=== PATIENT | female | born 1995 | race Caucasian/White ===

== ENCOUNTER 2020-04-14 16:29 | Emergency (ER) | payer OTHER ==
[~2020-04-14] VITALS: Ht 157.5 cm; Wt 60.3 kg
[2020-04-14] MEDS ORDERED: BUSPIRONE HCL7.5 MG PO (17:17)
[2020-04-14] MEDS ORDERED: XULANE PATCH1 EACH TD (17:17)
[2020-04-14] MEDS ORDERED: ZOFRAN4 MG PO (17:55)
== END 2020-04-14 18:41 | disposition home or self-care (01) ==
LOC: ED 16:29
DX: R11.10 Vomiting, unspecified (principal); R19.7 Diarrhea, unspecified; Z87.891 Personal history of nicotine dependence; Z88.0 Allergy status to penicillin; Z88.8 Allergy status to other drugs, medicaments and biological substances; Z79.899 Other long term (current) drug therapy
CPT/HCPCS: 80053; 83690; 83735; 84703; 85025; 96374; 99284-25; J2405; J7030

== ENCOUNTER 2020-08-18 12:43 | Emergency (ER) | payer SELFPAY ==
[~2020-08-18] VITALS: Ht 157.5 cm; Wt 60.3 kg
[~2020-08-18 12:43] MED LIST: BUSPIRONE HCL7.5 MG PO; XULANE PATCH1 EACH TD; ZOFRAN4 MG PO
[2020-08-18] MEDS ORDERED: NITROFURANTOIN100 M1 PO (13:00)
[2020-08-18] MEDS ORDERED: BUPROPION XL150 MG PO (13:00)
[2020-08-18] MEDS ORDERED: PREDNISONE20 MG PO (13:21)
[2020-08-18] MEDS ORDERED: HYDROXYZINE HCL25 MG PO (13:40)
== END 2020-08-18 13:53 | disposition home or self-care (01) ==
LOC: ED 12:43
DX: L50.9 Urticaria, unspecified (principal); Z87.891 Personal history of nicotine dependence; Z88.0 Allergy status to penicillin; Z88.8 Allergy status to other drugs, medicaments and biological substances; Z79.899 Other long term (current) drug therapy
CPT/HCPCS: 99283